=== PATIENT | male | born 1960 | race Caucasian/White ===

== ENCOUNTER → 2018-05-28 | Day surgery (SDC) | payer BC ==
[~2018-05-28] VITALS: Ht 177.8 cm; Wt 101.2 kg
[~2018-05-28] MED LIST: BETAMETHASONE ACET (6MG/ML) 5ML VIAL ONE; BUPIVACAINE 0.25% INJ 50ML VIAL IJ ONE; BUPIVACAINE 0.25% INJ 50ML VIAL ONE; DexAMETHasone SOD PHOS 10MG/1ML VIAL INJ ONE; HYDROmorphone HCL 2 MG/ML VL IV PRN; KETOROLAC TROMETH 30 MG/ML 1ML VIAL IV ONE; LABETALOL HCL 5 MG/ML 4ML SYRINGE IV PRN; MEPERIDINE HCL (50 MG/ML) 1 ML VIAL ONE; MIDAZOLAM HCL 1MG/1ML-2 ML VIAL IV PRN; MIDAZOLAM HCL 1MG/1ML-2 ML VIAL ONE; MORPHINE SULFATE 4 MG/ML SYR/VIAL IV ONE; MORPHINE SULFATE 4 MG/ML SYR/VIAL IV PRN; ONDANSETRON HCL 4 MG/2 ML VIAL IV ONE; PROPOFOL 10 MG/ML 20 ML IV ONE; SUCCINYLCHOLINE CHLORIDE 20 MG/ML 10ML VIAL IV ONE; ceFAZolin 1GM/50ML 50 ML IV ONE; ePHEDrine SULFATE 50 MG/ML AMP IV PRN; fentaNYL CITRATE 100 MCG/2 ML VL ONE; hydrALAZINE HCL 20 MG/ML VL IV PRN
[2018-05-28 15:41] VITALS: BP 146/84
== END | disposition home or self-care (01) ==
LOC: SUR 09:24
PROVIDERS: ATTEND Orthopaedic Surgery
DX: M75.121 Complete rotator cuff tear or rupture of right shoulder, not specified as traumatic (principal); M62.111 Other rupture of muscle (nontraumatic), right shoulder; E03.9 Hypothyroidism, unspecified; I10 Essential (primary) hypertension; Z90.49 Acquired absence of other specified parts of digestive tract; Z98.890 Other specified postprocedural states; Z79.899 Other long term (current) drug therapy; Z83.3 Family history of diabetes mellitus; Z80.9 Family history of malignant neoplasm, unspecified; Z82.5 Family history of asthma and other chronic lower respiratory diseases; Z80.42 Family history of malignant neoplasm of prostate
CPT/HCPCS: 23420; C1713; J0330; J0690; J0702; J1100; J2175; J2250; J2704; J3010; J3490

== ENCOUNTER 2019-04-10 02:01 | Emergency (ER) | payer BC ==
[~2019-04-10] VITALS: Ht 177.8 cm; Wt 105.2 kg
[2019-04-10 04:40] VITALS: BP 154/88
[2019-04-10] MEDS ORDERED: ALBUTEROL SULF 2.5 MG/0.5ML(0.5%) NEB SOLN NEB ONE (04:45)
[2019-04-10] MEDS ORDERED: IPRATROPIUM BROM 0.5 MG/2.5ML INH SOL NEB ONE (04:45)
[2019-04-10] MEDS ORDERED: cefTRIAXone SOD 1,000 MG VL IV ONE (05:30)
[2019-04-10] MEDS ORDERED: methylPREDNISolone SOD SUCC 125 MG/2 ML VL IV ONE (05:30)
[2019-04-10] MEDS ORDERED: KETOROLAC TROMETH 15 mg/ml 1ML VL IV ONE (05:30)
[2019-04-10] MEDS ORDERED: SODIUM CHLORIDE 0.9% 1,000 ML IV ONE (05:30)
[2019-04-10] MEDS ORDERED: cefTRIAXone 1GM/50ML D5W 50 ML IV ONE (06:30)
[2019-04-10 06:32] LABS: Basophils # (auto) 0 10 ^3/uL (0-0.2); Basophils % (auto) 0.6 % (0.0-2.0); Eosinophils # (auto) 0 10 ^3/uL (0-0.8); Eosinophils % (auto) 0.7 % (0.0-7.0); Hemoglobin 13.8 g/dL (13.5-17.5); Lymphocytes # (auto) 0.4 10 ^3/uL (0.4-5.4); Lymphocytes % (auto) 12.3 % (10.0-50.0); Mean Corpuscular Hemoglobin 29.9 pg (28.0-32.0); Mean Corpuscular Hgb Conc. 34.4 g/dL (32.0-36.0); Monocytes # (auto) 0.3 10 ^3/uL (0-1.3); Monocytes % (auto) 9.7 % (0.0-12.0); Neutrophils # (auto) 2.8 10 ^3/uL (1.6-8.6); Neutrophils % (auto) 76.7 % (37.0-80.0); Platelet Count (auto) 123 10^3/uL (140-450); White Blood Cell 3.6 10^3/uL (4.4-10.8)
[2019-04-10 06:52] LABS: Albumin 3.7 g/dL (3.4-5.0); Anion Gap 8 (5-15); Blood Urea Nitrogen 8 mg/dL (7-18); Calcium 8.6 mg/dL (8.5-10.1); Carbon Dioxide 24 mmol/L (21-32); Chloride 105 mmol/L (98-107); Glucose 115 mg/dL (74-106); Magnesium 2.2 mg/dL (1.6-2.6); Potassium 3.8 mmol/L (3.5-5.1); Sodium 137 mmol/L (136-145)
[2019-04-10 07:02] LABS: Alanine Aminotransferase 36 U/L (16-61); Alkaline Phosphatase 76 U/L (45-117); Aspartate Aminotransferase 26 U/L (15-37); BUN/Creatinine Ratio 7.3; Bilirubin, Total 0.3 mg/dL (0.2-1.0); CRP High Sensitivity 2.55 mg/dL (< 0.3); GFR African American 89 mL/min; GFR Non-African American 74 mL/min; Total Protein 7.5 g/dL (6.4-8.2)
== END 2019-04-10 07:26 | disposition home or self-care (01) ==
LOC: ER 02:14
DX: J18.1 Lobar pneumonia, unspecified organism (principal)
CPT/HCPCS: 36415; 71046; 80053; 83605; 83735; 84484; 85025; 85652; 86141; 87804; 94640; 96365; 96375; 99285; J0696; J1885; J2930; J7030; J7644

== ENCOUNTER 2024-05-28 17:07 | Emergency (ER) | payer BC ==
[~2024-05-28] VITALS: Ht 170.2 cm; Wt 101.1 kg
--- NOTE | 2024-05-28 17:35 | ED.PDOC ---
Musculoskeletal HPI Comments 63-year-old male with a history of hypertension and hypothyroidism brought in by self complaining of right calf pain, tightness and swelling for the past week. He denies any recent injury, skin wounds or discoloration. He denies any chest pain or shortness a breath. He states that he is able to ambulate, but with discomfort. Chief Complaint: Lower Extremity Time Seen by MD: 17:23 Primary Care Provider: mary Cuenca Notes: Medications, Allergies Allergies: Coded Allergies: Levothyroxine (Verified Allergy, Unknown, 05/28/24) Home Meds Active Scripts Acetaminophen (Tylenol Extra Strength) 500 Mg Tab, 1000 MG PO Q6HP PRN, #30 TAB prn pain Prov:CHRIS CAPUTO MD 05/28/24 Ibuprofen Micronized (Ibuprofen) 800 Mg Tab, 800 MG PO Q8HP PRN, #30 TAB prn pain, take with food Prov:CHRIS CAPUTO MD 05/28/24 Information Source: Patient Mode of Arrival: Ambulatory Location: Right Extremity Location: Calf Timing: Weeks Prehospital treatment: None Severity: Moderate Able to Move Extremity: Yes Bear Weight: Limited Pain: Moderate Mechanism: Spontaneous Circumstances: Spontaneous Onset of Symptoms: Spontaneous Symptoms: Swelling DVT Risk Factors: NONE Associated signs and symptoms: Leg pain Past Medical History PAST MEDICAL HISTORY: HTN, Thyroid Surgical History: Denies all surgeries Family History Family History: Reviewed,noncontributory to illness, No family hx of Cancer, No family hx of DM, No family hx of Heart ji, No family hx of HTN, No family hx ofKidney ji, No family hx of Liver ji, No family hx of Lung ji, No family hx of Stroke Social History Smoker: Non-Smoker Alcohol: Denies ETOH Use Drugs: Denies Drug Use Lives In: Home Musculoskeletal: reports: others (RT leg swelling, RT calf tense) All Other Systems: Reviewed and Negative (Comprehensive systems review obtained and negative except for what is stated in the HPI.) Physical Exam General Appearance: No Apparent Distress HEENT: Other (Pupils and face symmetric. Moist mucous membranes.) Neck: Full Range of Motion, Normal Inspection Respiratory: Lungs Clear, No Accessory Muscle Use, No Respiratory Distress, Normal Breath Sounds Cardiovascular: No JVD, Regular Rate/Rhythm Breast Exam: Deferred Gastrointestinal: Non Tender, Soft Genitalia: Deferred Pelvic: Deferred Rectal: Deferred Extremities: Calf tenderness (Right), Leg edema (Right greater than left), Normal range of motion, Pedal edema (Right), Swelling (Right leg/calf), Tender (Right calf) Neurologic: Alert (Oriented x4), Normal Affect, Normal Mood, Other (Ambulatory without difficulty.) Cerebellar Function: NOT DONE Reflexes: NOT DONE Skin: Dry, Normal Color, Warm Lymphatic: NOT DONE Was a procedure done? Was a procedure done?: No Differential Diagnosis EXT Differential Diagnosis: Cellulitis, CHF, Deep Vein Thrombosis, Compartment Syndrome, Sprain, Contusion, Strain, Arthritis, Bursitis X-Ray, Labs, Meds, VS Vital Signs Date Time Temp Pulse Resp B/P (MAP) Pulse Ox O2 Delivery O2 Flow Rate FiO2 05/28/24 21:30 100 18 98 Room Air* 0 21 05/28/24 21:30 97.8 100 18 167/102 (123) 98 97.8 05/28/24 17:17 98.2 109 17 139/93 (108) 96 98.2 Lab Test 05/28/24 19:04 Range/Units White Blood Count 7.0 4.4-10.8 10^3/uL Red Blood Count 4.44 L 4.5-5.90 10^6/uL Hemoglobin 12.5 L 13.5-17.5 g/dL Hematocrit 37.4 L 41.0-53.0 % Mean Corpuscular Volume 84.1 80.0-100.0 fL Mean Corpuscular Hemoglobin 28.1 28.0-32.0 pg Mean Corpuscular Hemoglobin Concent 33.4 32.0-36.0 g/dL Red Cell Distribution Width 14.3 11.8-14.3 % Platelet Count 303 140-450 10^3/uL Mean Platelet Volume 7.9 6.9-10.8 fL Neutrophils (%) (Auto) 70.5 37.0-80.0 % Lymphocytes (%) (Auto) 17.6 10.0-50.0 % Monocytes (%) (Auto) 7.9 0.0-12.0 % Eosinophils (%) (Auto) 2.8 0.0-7.0 % Basophils (%) (Auto) 1.2 0.0-2.0 % Neutrophils # (Auto) 5.0 1.6-8.6 10 ^3/uL Lymphocytes # (Auto) 1.2 0.4-5.4 10 ^3/uL Monocytes # (Auto) 0.6 0-1.3 10 ^3/uL Eosinophils # (Auto) 0.2 0-0.8 10 ^3/uL Basophils # (Auto) 0.1 0-0.2 10 ^3/uL Nucleated Red Blood Cells 0.0 % Sodium Level 140 136-145 mmol/L Potassium Level 4.4 3.5-5.1 mmol/L Chloride Level 109 H 98-107 mmol/L Carbon Dioxide Level 22 20-31 mmol/L Anion Gap 9 5-15 Blood Urea Nitrogen 17 9-23 mg/dL Creatinine 1.23 0.700-1.30 mg/dL Glomerular Filtration Rate Calc 67 >90 mL/min BUN/Creatinine Ratio 13.8 10.0-20.0 Serum Glucose 123 H 74-106 mg/dL Calcium Level 9.9 8.7-10.4 mg/dL Total Bilirubin 0.4 0.2-1.0 mg/dL Aspartate Amino Transferase (AST) 23 13-40 U/L Alanine Aminotransferase (ALT) 31 7-40 U/L Alkaline Phosphatase 90 46-116 U/L Troponin I High Sensitivity 16 </=54 ng/L B-Type Natriuretic Peptide 14.29 0-100 pg/mL Total Protein 7.7 5.7-8.2 g/dL Albumin 4.9 H 3.2-4.8 g/dL Current Medications Medications (Trade) Dose Ordered Sig/Nicole Route Start Time Stop Time Status Last Admin Ketorolac Tromethamine (Toradol Injection) 60 mg ONCE ONCE IM 05/28/24 17:30 05/28/24 17:31 DC 05/28/24 18:46 PROCEDURE(s): CXRP - CHEST PORTABLE REASON: edema ORDER NUMBER(s): [id number], ACCESSION NUMBER(s): [id number] CHEST RADIOGRAPH Indication: edema Technique: Single frontal view of the chest was obtained Comparison: None FINDINGS: Left ventricle is prominent but the heart is normal in size. Lisa are slightly prominent. Peripheral markings are slightly prominent but I do not see a definite infiltrate or effusion. Patient has surgery involving the right shoulder. IMPRESSION: 1. No acute findings. But PA and lateral would be helpful EDURE(s): BLDVT - BiLat Lower DVT REASON: R>LLE edema ORDER NUMBER(s): [id number], ACCESSION NUMBER(s): [id number] Bilateral lower extremity venous duplex Clinical History: R>LLE edema Comparison: None Technique: Duplex Doppler evaluation of the deep venous systems of both lower extremities from the common femoral veins to the popliteal veins including color Doppler and spectral/pulsed waveform analysis was performed. Findings: RIGHT SIDE: The common femoral vein demonstrates appropriate compressibility and waveform variability . There is compressibility/patency of the great saphenous vein at the proximal thi gh . The femoral vein demonstrates appropriate compressibility and waveform variability . The deep femoral vein demonstrates appropriate compressibility and waveform variability . The popliteal vein demonstrates appropriate compressibility and waveform variability . There is color flow at the tibioperoneal trunk and in the posterior tibial vein. Elongated anechoic fluid collection posterior to the calf muscles measuring 5.7 cm in length and 1.1 cm in thickness. LEFT SIDE: The common femoral vein demonstrates appropriate compressibility and waveform variability . There is compressibility/patency of the great saphenous vein at the proximal thigh . The femoral vein demonstrates appropriate compressibility and waveform variability . The deep femoral vein demonstrates appropriate compressibility and waveform variability . The popliteal vein demonstrates appropriate compressibility and waveform variability . There is color flow at the tibioperoneal trunk and in the posterior tibial vein. Impression: 1. No right or left femoropopliteal venous thrombosis. 2. Fluid collection posterior to the right calf musculature likely organizing hematoma. Associated muscle or tendon injury can not be ruled out. Suggest further evaluation with MRI on a nonemergent basis if clinically indicated. EDURE(s): RLEX - LOWER EXTREMITY NON JOINT RIGH REASON: R leg/calf pain/edema ORDER NUMBER(s): [id number], ACCESSION NUMBER(s): [id number] EXAM: CT LOWER EXTREMITY NON JOINT RIGH INDICATION: R leg/calf pain/edema EXAM DATE: 05/28/2024 06:05 PM COMPARISON: None TECHNIQUE: Multiple axial CT images of the right tibia and fibula were obtained using bone algorithm. Axial and coronal reformatting was done. Bone and soft tissue windows were reviewed. Radiation Dose Information: CT Dose: CTDI volume is 7.75 mGy. Dose-length product is 435.81 mGy*cm Findings/Impression: There is no evidence of an acute fracture, dislocation, blastic, or lytic lesions. No radiopaque foreign bodies. No joint effusion. Mild diffuse soft tissue edema. Increased attenuation along the proximal aspect of the gastrocnemius muscle favored to reflect an evolving hematoma. Correlate for history of trauma. X-Ray, Labs, Meds, VS Comment 63-year-old male with a history of hypertension and thyroid disease complaining of right calf pain, swelling and tenderness Vitals remarkable for heart rate 109, BP 139/103 Exam remarkable for right leg and calf soft tissue swelling, calf tenderness Rhythm strip independently interpreted by me: Sinus tach, rate 109, no ectopy. Chest x-ray unremarkable Bilateral lower extremity duplex ultrasound Impression: 1. No right or left femoropopliteal venous thrombosis. 2. Fluid collection posterior to the right calf musculature likely organizing hematoma. Associated muscle or tendon injury can not be ruled out. Suggest further evaluation with MRI on a nonemergent basis if clinically indicated. CT right lower extremity Findings/Impression: There is no evidence of an acute fracture, dislocation, blastic, or lytic lesions. No radiopaque foreign bodies. No joint effusion. Mild diffuse soft tissue edema. Increased attenuation along the proximal aspect of the gastrocnemius muscle favored to reflect an evolving hematoma. Correlate for history of trauma. CBC and CMP unremarkable, BNP and troponin negative Patient treated with the following in the ED: Toradol 60 mg IM On re-evaluation, patient states pain has improved. Vitals were stable. Exam is unchanged. Compartments are soft. Right lower extremity has good cap refill and appears neurovascularly intact. Doubt abscess in favor of evolving hematoma, as the patient has no fever, malaise, leukocytosis or other infectious type symptoms. There was no discoloration of the right lower extremity. Patient appears stable for discharge with close outpatient follow-up with his primary physician. Rx ibuprofen, Tylenol Time of 1ST Reevaluation: 17:53 Reevaluation 1ST: Unchanged Time of 2ND Reevaluation: 21:06 Reevaluation 2ND: Improved Patient Education/Counseling: Diagnosis, Treatment, Prognosis Family Education/Counseling: No Family Present Departure 1 Departure Time of Disposition: 21:06 Impression: Primary Impression: Hematoma of right lower extremity Disposition: HOME / SELF CARE / HOMELESS Condition: Stable Additional Instructions: Follow-up with primary doctor in 1-2 days. If unable to follow-up with primary doctor, return to ER for re-evaluation. e-Prescriptions Acetaminophen (Tylenol Extra Strength) 500 Mg Tab 1000 MG PO Q6HP PRN, #30 TAB prn pain Prov: CHRIS CAPUTO MD 05/28/24 Ibuprofen Micronized (Ibuprofen) 800 Mg Tab 800 MG PO Q8HP PRN, #30 TAB prn pain, take with food Prov: CHRIS CAPUTO MD 05/28/24 Discharged With: Self Critical Care Note Critical Care Time?: No Stability Stability form required: No Heart Score Heart Score: Heart Score Response (Comments) Value History N/A 0 EKG N/A 0 Age N/A 0 Risk Factors N/A 0 Troponin N/A 0 Total 0 I personally scribed for CHRIS CAPUTO MD ([email or web address]) on 05/28/24 at 17:35. Electronically submitted by Siobhan Caceres ([email or web address]). CHRIS CAPUTO MD May 28, 2024 17:35
[2024-05-28] MEDS: KETOROLAC TROMETH 60MG/2ML VIAL IM ONE (18:46)
--- NOTE | 2024-05-28 18:55 | DVH ---
CHEST RADIOGRAPH Indication: edema Technique: Single frontal view of the chest was obtained Comparison: None FINDINGS: Left ventricle is prominent but the heart is normal in size. Lisa are slightly prominent. Peripheral markings are slightly prominent but I do not see a definite infiltrate or effusion. Patien t has surgery involving the right shoulder. IMPRESSION: 1. No acute findings. But PA and lateral would be helpful
--- NOTE | 2024-05-28 19:18 | DVH ---
Bilateral lower extremity venous duplex Clinical History: R>LLE edema Comparison: None Technique: Duplex Doppler evaluation of the deep venous systems of both lower extremities from the co mmon femoral veins to the popliteal veins including color Doppler and spectral/pulsed waveform analys is was performed. Findings: RIGHT SIDE: The common femoral vein demonstrates appropriate compressibility and waveform variability . There is compressibility/patency of the great saphenous vein at the proximal thigh . The femoral vein demonstrates appropriate compressibility and waveform variability . The deep femoral vein demonstrates appropriate compressibility and waveform variability . The popliteal vein demonstrates appropriate compressibility and waveform variability . There is color flow at the tibioperoneal trunk and in the posterior tibial vein. Elongated anechoic fluid collection posterior to the calf muscles measuring 5.7 cm in length and 1.1 cm in thickness. LEFT SIDE: The common femoral vein demonstrates appropriate compressibility and waveform variability . There is compressibility/patency of the great saphenous vein at the proximal thigh . The femoral vein demonstrates appropriate compressibility and waveform variability . The deep femoral vein demonstrates appropriate compressibility and waveform variability . The popliteal vein demonstrates appropriate compressibility and waveform variability . There is color flow at the tibioperoneal trunk and in the posterior tibial vein. Impression: 1. No right or left femoropopliteal venous thrombosis. 2. Fluid collection posterior to the right calf musculature likely organizing hematoma. Associated mu scle or tendon injury can not be ruled out. Suggest further evaluation with MRI on a nonemergent bas is if clinically indicated.
[2024-05-28 19:22] LABS: Basophils # (auto) 0.1 10 ^3/uL (0-0.2); Basophils % (auto) 1.2 % (0.0-2.0); Eosinophils # (auto) 0.2 10 ^3/uL (0-0.8); Eosinophils % (auto) 2.8 % (0.0-7.0); Hematocrit 37.4 % (41.0-53.0); Hemoglobin 12.5 g/dL (13.5-17.5); Lymphocytes # (auto) 1.2 10 ^3/uL (0.4-5.4); Lymphocytes % (auto) 17.6 % (10.0-50.0); Mean Corpuscular Hemoglobin 28.1 pg (28.0-32.0); Mean Corpuscular Hgb Conc. 33.4 g/dL (32.0-36.0); Mean Corpuscular Volume 84.1 fL (80.0-100.0); Monocytes # (auto) 0.6 10 ^3/uL (0-1.3); Monocytes % (auto) 7.9 % (0.0-12.0); Neutrophils % (auto) 70.5 % (37.0-80.0); Platelet Count (auto) 303 10^3/uL (140-450); Red Blood Cells 4.44 10^6/uL (4.5-5.90); Red Cell Distribution Width 14.3 % (11.8-14.3)
[2024-05-28 19:49] LABS: Alanine Aminotransferase 31 U/L (7-40); Alkaline Phosphatase 90 U/L (46-116); Anion Gap 9 (5-15); Aspartate Aminotransferase 23 U/L (13-40); BUN/Creatinine Ratio 13.8 (10.0-20.0); Bilirubin, Total 0.4 mg/dL (0.2-1.0); Blood Urea Nitrogen 17 mg/dL (9-23); Calcium 9.9 mg/dL (8.7-10.4); Carbon Dioxide 22 mmol/L (20-31); Potassium 4.4 mmol/L (3.5-5.1); Sodium 140 mmol/L (136-145); Total Protein 7.7 g/dL (5.7-8.2)
[2024-05-28 19:56] LABS: Albumin 4.9 g/dL (3.2-4.8); Chloride 109 mmol/L (98-107); Glucose 123 mg/dL (74-106)
--- NOTE | 2024-05-28 20:05 | DVH ---
EXAM: CT LOWER EXTREMITY NON JOINT RIGH INDICATION: R leg/calf pain/edema EXAM DATE: 05/28/2024 06:05 PM COMPARISON: None TECHNIQUE: Multiple axial CT images of the right tibia and fibula were obtained using bone algorithm. Axial and coronal reformatting was done. Bone and soft tissue windows were reviewed. Radiation Dose Information: CT Dose: CTDI volume is 7.75 mGy. Dose-length product is 435.81 mGy*cm Findings/Impression: There is no evidence of an acute fracture, dislocation, blastic, or lytic lesions. No radiopaque foreign bodies. No joint effusion. Mild diffuse soft tissue edema. Increased attenuation along the proximal aspect of the gastrocnemius muscle favored to reflect an rayna lving hematoma. Correlate for history of trauma.
[2024-05-28] MEDS ORDERED: ACET-1304 PO (21:10)
[2024-05-28] MEDS ORDERED: IBUP-1455 PO (21:10)
[2024-05-28 21:30] VITALS: BP 167/102; PULSE 100; RESP 18; TEMP 97.8; O2SAT 98
== END 2024-05-28 21:44 | disposition home or self-care (01) ==
LOC: ER 17:07
DX: S80.11XA Contusion of right lower leg, initial encounter (principal); E03.9 Hypothyroidism, unspecified; I10 Essential (primary) hypertension; Z79.899 Other long term (current) drug therapy; X58.XXXA Exposure to other specified factors, initial encounter; Y93.89 Activity, other specified; Y92.89 Other specified places as the place of occurrence of the external cause; Y99.8 Other external cause status
CPT/HCPCS: 36415; 71045; 73700; 80053; 83880; 84484; 85025; 93970; 96372; 99285; J1885